=== PATIENT | female | born 1975 | race American Indian/Alaskan Native ===

== ENCOUNTER 2016-08-28 10:29 | Emergency (ER) | payer OTHER ==
[2016-08-28 10:47] VITALS: TEMP 98
--- NOTE | 2016-08-28 11:35 | C.PDOC ---
History Of Present Illness 41 y/o female presents to ED who reports positive home test at home several days ago. Pt reports scant vaginal bleeding after sexual intercourse on 08/26 (2 days ago). Denies abdominal pain or cramping, nausea, vomiting, urinary symptoms, or other complaints. Pt notes she had IUP removed last month, LMP first week of June (2 months ago). Time Seen by Provider: 08/28/16 11:11 Chief Complaint (Nursing): Abdominal Pain History Per: Patient History/Exam Limitations: no limitations Current Symptoms Are (Timing): Still Present Pain Scale Rating Of: 0 Radiation Of Pain To:: None Associated Symptoms: denies: Fever, Chills, Nausea, Vomiting, Diarrhea, Urinary Symptoms Recent travel outside of the [place]: No Abnormal Vaginal Bleeding: Yes Past Medical History Reviewed: Historical Data, Nursing Documentation, Vital Signs Vital Signs: Last Vital Signs Temp 98 F 08/28/16 10:43 Pulse 73 08/28/16 14:38 Resp 18 08/28/16 14:38 BP 102/68 08/28/16 14:38 Pulse Ox 99 08/28/16 16:09 - Medical History PMH: No Chronic Diseases Family History: States: Unknown Family Hx - Social History Hx Alcohol Use: Yes Hx Substance Use: No - Immunization History Hx Tetanus Toxoid Vaccination: No Hx Influenza Vaccination: No Hx Pneumococcal Vaccination: No Review Of Systems Except As Marked, All Systems Reviewed And Found Negative. Constitutional: Negative for: Fever, Chills Cardiovascular: Negative for: Chest Pain Respiratory: Negative for: Cough, Shortness of Breath Gastrointestinal: Negative for: Nausea, Vomiting, Abdominal Pain Genitourinary: Positive for: Vaginal Bleeding. Negative for: Dysuria, Frequency , Hematuria, Vaginal Discharge, Pelvic Pain Skin: Negative for: Rash Neurological: Negative for: Headache, Dizziness Physical Exam - Physical Exam Appears: Non-toxic, No Acute Distress Skin: Normal Color, Warm, Dry Head: Atraumatic, Normacephalic Oral Mucosa: Moist Chest: Symmetrical Cardiovascular: Rhythm Regular Respiratory: Normal Breath Sounds, No Rales, No Rhonchi, No Wheezing Gastrointestinal/Abdominal: Soft, No Tenderness, No Guarding, No Rebound Back: Normal Inspection Extremity: Normal ROM, Capillary Refill (< 2 sec. ) Neurological/Psych: Oriented x3, Normal Speech, Normal Cognition ED Course And Treatment - Laboratory Results Result Diagrams: 08/28/16 11:53 08/28/16 11:53 O2 Sat by Pulse Oximetry: 99 (RA) Pulse Ox Interpretation: Normal - CT Scan/US 1ST TRIMESTER ULTRASOUND Other Rad Studies (CT/US): Read By Radiologist, Radiology Report Reviewed CT/US Interpretation: Findings: The uterus measures approximately 11.1 x 5.0 x 7.0 cm. Anteverted. Probable midline uterine fibroid measuring approximately 1.6 x 1.5 x 2.1 cm. Cervix length measures approximately 4.5 cm. Intrauterine gestational sac appears irregular in contour and measures 1.3 cm and is compatible with a gestational age of 5 weeks 4 days. 2 mm yolk sac. No evidence of pole. The right ovary measures 3.3 x 2.9 x 3.0 cm and contains 2.5 cm complex cyst, likely corpus luteal cyst. The left ovary measures 2.0 x 1.4 x 2.7 cm. Blood flow was demonstrated to both ovaries. Impression: Intrauterine gestational sac appears irregular in contour and measures 1.3 cm and is compatible with a gestational age of 5 weeks 4 days. 2 mm yolk sac. No evidence of pole. Recommend clinical correlation and close interval follow-up including quantitative beta HCG and ultrasound as indicated. 2.5 cm probable right corpus luteal cyst. Probable 2.1 cm midline uterine fibroid. Medical Decision Making Medical Decision Making: Plan: * Labs, ultrasound, reassess. Progress: On re-exam, the patient reports improvement of symptoms. Ambulatory in the ED with steady gait. Lungs are CTA, heart is RRR, abdomen is soft, non-tender and tolerating PO well. Follow up with the medical doctor within 1-2 days. Return if worsened. Disposition - Disposition Referrals: [facility] [Outside] Disposition: HOME/ ROUTINE Disposition Time: 14:00 Condition: GOOD Additional Instructions: return to the ED in 2 days for repeat beta and ultrasound. 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 - Scribe Statement The provider has reviewed the documentation as recorded by the Scribe All medical record entries made by the Scribe were at my direction and personally dictated by me. I have reviewed the chart and agree that the record accurately reflects my personal performance of the history, physical exam, medical decision making, and the department course for this patient. I have also personally directed, reviewed, and agree with the discharge instructions and disposition.
[2016-08-28 11:58] LABS: BASO # 0.1 K/uL (0.0-0.2); BASO % 0.6 % (0.0-2.0); EOS # 0.1 K/uL (0.0-0.7); EOS % 1.5 % (0.0-4.0); HEMOGLOBIN 12.9 g/dL (11.0-16.0); LYMPH # 2.4 K/uL (1.0-4.3); LYMPH % 24.1 % (20.0-40.0); MEAN CELL VOLUME 89.6 fL (81.0-99.0); MEAN CORPUSCULAR HEMOGLOBIN 29.2 pg (27.0-31.0); MEAN CORPUSCULAR HGB CONC 32.6 g/dL (33.0-37.0); MEAN PLATELET VOLUME 9.2 fL (7.2-11.7); MONO # 0.7 K/uL (0.0-0.8); MONO % 6.8 % (0.0-10.0); NEUT # 6.6 K/uL (1.8-7.0); RBC 4.43 Mil/uL (3.80-5.20); RED CELL DISTRIBUTION WIDTH 13.9 % (11.5-14.5); WHITE BLOOD COUNT 9.8 K/uL (4.8-10.8)
[2016-08-28 12:02] LABS: URINE BILIRUBIN NEGATIVE (NEGATIVE); URINE BLOOD 2+ (NEGATIVE); URINE CLARITY Clear (Clear); URINE COLOR Yellow (YELLOW); URINE GLUCOSE (UA) NORMAL (Normal); URINE LEUKOCYTE ESTERASE NEG Leu/uL (Negative); URINE NITRATE NEGATIVE (NEGATIVE); URINE PROTEIN NEGATIVE (NEGATIVE); URINE UROBILINOGEN NORMAL mg/dL (0.2-1.0)
[2016-08-28 12:06] LABS: SQUAMOUS EPITHIAL 8 /hpf (0-5); URINE BACTERIA RARE (<OCC)
[2016-08-28 12:08] LABS: ALBUMIN 3.8 g/dL (3.5-5.0)
[2016-08-28 12:10] LABS: GFR AFRICAN-AMERICAN > 60; GFR NON-AFRICAN AMERICAN > 60
[2016-08-28 12:11] LABS: ALB/GLOB RATIO 1.3 (1.0-2.1); ALT/SGPT 22 U/L (9-52); AST/SGOT 18 U/L (14-36); BLOOD UREA NITROGEN 5 mg/dL (7-17); CALCIUM 8.8 mg/dl (8.6-10.4)
--- NOTE | 2016-08-28 14:16 | US ---
Indication: , vaginal bleeding Comparison: None available Technique: Real-time transabdominal pelvic ultrasound was performed. In addition a transvaginal pelvic ultrasound was necessary to better depict pelvic anatomy. Findings: The uterus measures approximately 11.1 x 5.0 x 7.0 cm. Anteverted. Probable midline uterine fibroid measuring approximately 1.6 x 1.5 x 2.1 cm. Cervix length measures approximately 4.5 cm. Intrauterine gestational sac appears irregular in contour and measures 1.3 cm and is compatible with a gestational age of 5 weeks 4 days. 2 mm yolk sac. No evidence of pole. The right ovary measures 3.3 x 2.9 x 3.0 cm and contains 2.5 cm complex cyst, likely corpus luteal cyst. The left ovary measures 2.0 x 1.4 x 2.7 cm. Blood flow was demonstrated to both ovaries. Impression: Intrauterine gestational sac appears irregular in contour and measures 1.3 cm and is compatible with a gestational age of 5 weeks 4 days. 2 mm yolk sac. No evidence of pole. Recommend clinical correlation and close interval follow-up including quantitative beta HCG and ultrasound as indicated. 2.5 cm probable right corpus luteal cyst. Probable 2.1 cm midline uterine fibroid.
[2016-08-28 14:39] VITALS: BP 102/68; PULSE 73; RESP 18
[2016-08-28 16:10] VITALS: O2SAT 99
== END 2016-08-28 14:47 | disposition home or self-care (01) ==
LOC: C.ER 10:29
DX: O20.0 Threatened abortion (principal); Z3A.01 Less than 8 weeks gestation of pregnancy

== ENCOUNTER 2016-08-30 08:45 | Emergency (ER) | payer OTHER ==
[2016-08-30 09:41] VITALS: RESP 16; TEMP 97.9
--- NOTE | 2016-08-30 12:42 | C.PDOC ---
History Of Present Illness Pt is here for repeat beta hcg level. She has been having vaginal spotting and was seen here 2 days ago. Time Seen by Provider: 08/30/16 09:07 Chief Complaint (Nursing): Female Genitourinary History Per: Patient Onset/Duration Of Symptoms: Days (2) Current Symptoms Are (Timing): Still Present Severity: Mild Quality Of Discomfort: Unable To Describe Alleviating Factors: None Additional History Per: Prior Records Abnormal Vaginal Bleeding: Yes Past Medical History Reviewed: Historical Data, Nursing Documentation, Vital Signs Vital Signs: Last Vital Signs Temp 97.9 F 08/30/16 09:40 Pulse 69 08/30/16 09:40 Resp 16 08/30/16 09:40 BP 101/61 08/30/16 09:40 Pulse Ox 99 08/30/16 12:44 - Medical History PMH: No Chronic Diseases Family History: States: Unknown Family Hx - Social History Hx Alcohol Use: No (no longer) Hx Substance Use: No - Immunization History Hx Tetanus Toxoid Vaccination: No Hx Influenza Vaccination: No Hx Pneumococcal Vaccination: No Review Of Systems Except As Marked, All Systems Reviewed And Found Negative. Constitutional: Negative for: Fever, Weakness Cardiovascular: Negative for: Chest Pain, Light Headedness Respiratory: Negative for: Shortness of Breath Gastrointestinal: Negative for: Vomiting, Abdominal Pain Genitourinary: Negative for: Dysuria Musculoskeletal: Negative for: Neck Pain, Back Pain Skin: Negative for: Rash Neurological: Negative for: Weakness, Numbness, Seizures, Altered Mental Status Physical Exam - Physical Exam Appears: Non-toxic, No Acute Distress Skin: Normal Color, Warm, Dry, No Rash Head: Atraumatic, Normacephalic Eye(s): bilateral: Normal Inspection, PERRL, EOMI Neck: Normal ROM, Supple Cardiovascular: Rhythm Regular Respiratory: Normal Breath Sounds, No Accessory Muscle Use Gastrointestinal/Abdominal: Soft, No Tenderness Back: No CVA Tenderness Extremity: Normal ROM Neurological/Psych: Oriented x3, Normal Motor, Normal Sensation ED Course And Treatment - Laboratory Results Interpretation Of Abnormal: Beta hcg went up from 21k to 31k. O2 Sat by Pulse Oximetry: 99 Pulse Ox Interpretation: Normal - Physician Consult Information Physician Contacted: Oanh Alejandro ([employer] Notcher) Outcome Of Conversation: She recommended repeat US and f/up as outpt with her Senior Nurse Manager if US is stable. Disposition Counseled Patient/Family Regarding: Studies Performed, Diagnosis, Need For Followup - Disposition Disposition: HOME/ ROUTINE Disposition Time: 13:13 Condition: IMPROVED Additional Instructions: Pelvic rest as instructed. Follow up with your Part[employer] Notcher doctor within 1 week for further evaluation and treatment. Return to the ER if you develop abdominal pain , fever, heavy bleeding, dizziness, worsening of symptoms or if you have any other concerns. Instructions: Threatened Miscarriage (ED) - Clinical Impression Clinical Impression: Threatened in first trimester
--- NOTE | 2016-08-30 12:54 | US ---
PROCEDURE: OB Pelvic Ultrasound HISTORY: Spotting. abnormaly rising beta hcg. COMPARISON: 08/28/2016 FINDINGS: UTERUS: Intrauterine gestational sac identified. Mean sac diameter 1.7 cm corresponds to 6 weeks 0 days. No pole identified. No demonstrable cardiac activity. 3 mm yolk sac identified. Subchorionic hemorrhage measures 3.2 x 0.7 x 2.4 cm. There is an echogenic vaguely rounded soft tissue density protruding into the gestational sac which may represent fresh hemorrhage. Uterus measures 9.6 x 5.3 x 6.7 cm. There is a midline intramural fibroid, 1.6 x 1.5 x 1.4 cm. CERVIX: Long and closed. No cervical abnormality seen. RIGHT OVARY: Measures 3.1 x 2.8 x 3.3 cm. No mass. Normal flow. Corpus luteum, 2.5 x 2.0 x 2.2 cm. LEFT OVARY: Measures 2.9 x 2.1 x 2.2 cm. No mass. Normal flow. FREE FLUID: Minimal OTHER FINDINGS: None. IMPRESSION: Intrauterine gestational sac with sac diameter corresponding to 6 weeks 0 days. No demonstrable pole. Subchorionic hemorrhage with echogenic component possibly representing fresh hemorrhage. Alternatively, this could represent abnormal pole. No cardiac activity demonstrated. Incidental 1.6 cm uterine fibroid. Minimal fluid in cul-de-sac. Right ovarian corpus luteum.
[2016-08-30 13:20] VITALS: BP 100/68; PULSE 76; O2SAT 98
== END 2016-08-30 13:19 | disposition home or self-care (01) ==
LOC: C.ER 08:45
DX: O20.0 Threatened abortion (principal); Z3A.01 Less than 8 weeks gestation of pregnancy

== ENCOUNTER 2016-09-03 17:27 | Emergency (ER) | payer OTHER ==
[2016-09-03] MEDS ORDERED: Sodium Chloride 0.9% 1,000 ML IV ONE (18:40)
[2016-09-03 19:03] LABS: BASO # 0.1 K/uL (0.0-0.2); BASO % 0.6 % (0.0-2.0); EOS # 0.1 K/uL (0.0-0.7); EOS % 1.2 % (0.0-4.0); HEMOGLOBIN 12.4 g/dL (11.0-16.0); LYMPH # 2.9 K/uL (1.0-4.3); LYMPH % 25.6 % (20.0-40.0); MEAN CELL VOLUME 89.3 fL (81.0-99.0); MEAN CORPUSCULAR HGB CONC 32.5 g/dL (33.0-37.0); MEAN PLATELET VOLUME 9.1 fL (7.2-11.7); MONO # 0.7 K/uL (0.0-0.8); MONO % 6.2 % (0.0-10.0); NEUT # 7.6 K/uL (1.8-7.0); NEUT % 66.4 % (50.0-75.0); NRBC % 0.1 % (0.0-2.0); RBC 4.28 Mil/uL (3.80-5.20); RED CELL DISTRIBUTION WIDTH 13.9 % (11.5-14.5); WHITE BLOOD COUNT 11.5 K/uL (4.8-10.8)
[2016-09-03 19:12] LABS: ALBUMIN 3.8 g/dL (3.5-5.0); PROTHROMBIN TIME 10.7 SECONDS (9.7-12.2)
[2016-09-03 19:13] LABS: SQUAMOUS EPITHIAL 2 /hpf (0-5); URINE AMORPHOUS SEDIMENT FEW /ul (<OCC); URINE BACTERIA RARE (<OCC); URINE BILIRUBIN NEGATIVE (NEGATIVE); URINE CLARITY Hazy (Clear); URINE COLOR Yellow (YELLOW); URINE GLUCOSE (UA) NORMAL (Normal); URINE LEUKOCYTE ESTERASE NEG Leu/uL (Negative); URINE NITRATE NEGATIVE (NEGATIVE); URINE PROTEIN NEGATIVE (NEGATIVE); URINE UROBILINOGEN NORMAL mg/dL (0.2-1.0)
[2016-09-03 19:15] LABS: ALB/GLOB RATIO 1.3 (1.0-2.1); ALT/SGPT 35 U/L (9-52); AST/SGOT 21 U/L (14-36); BLOOD UREA NITROGEN 6 mg/dL (7-17); GFR AFRICAN-AMERICAN > 60; GFR NON-AFRICAN AMERICAN > 60
[2016-09-03 19:20] LABS: URINE BLOOD 2+ (NEGATIVE)
--- NOTE | 2016-09-03 21:38 | C.PDOC ---
History Of Present Illness Pt states vaginal bleeding increased today with suprapubic cramping. Time Seen by Provider: 09/03/16 18:30 Chief Complaint (Nursing): Female Genitourinary History Per: Patient Onset/Duration Of Symptoms: Days Current Symptoms Are (Timing): Worse Severity: Moderate Quality Of Discomfort: Cramping Alleviating Factors: None Additional History Per: Prior Records Abnormal Vaginal Bleeding: Yes Past Medical History Reviewed: Historical Data, Nursing Documentation, Vital Signs Vital Signs: Last Vital Signs Temp 98 F 09/03/16 17:32 Pulse 91 H 09/03/16 17:32 Resp 18 09/03/16 17:32 BP 105/71 09/03/16 17:32 Pulse Ox 100 09/03/16 17:32 - Medical History PMH: No Chronic Diseases Family History: States: Unknown Family Hx - Social History Hx Alcohol Use: Yes Hx Substance Use: No - Immunization History Hx Tetanus Toxoid Vaccination: No Hx Influenza Vaccination: No Hx Pneumococcal Vaccination: No Review Of Systems Except As Marked, All Systems Reviewed And Found Negative. Constitutional: Negative for: Fever, Weakness Cardiovascular: Negative for: Chest Pain, Light Headedness Respiratory: Negative for: Shortness of Breath Gastrointestinal: Negative for: Vomiting Genitourinary: Positive for: Vaginal Bleeding, Pelvic Pain Musculoskeletal: Negative for: Neck Pain, Back Pain Skin: Negative for: Rash Neurological: Negative for: Weakness, Numbness Physical Exam - Physical Exam Appears: Non-toxic, No Acute Distress Skin: Normal Color, Warm, Dry, No Rash Head: Atraumatic, Normacephalic Eye(s): bilateral: Normal Inspection, PERRL, EOMI Neck: Normal ROM, Supple Cardiovascular: Rhythm Regular Respiratory: Normal Breath Sounds, No Accessory Muscle Use Gastrointestinal/Abdominal: Soft, Tenderness (mild suprapubic), No Guarding, No Rebound Back: No CVA Tenderness Extremity: Normal ROM Neurological/Psych: Oriented x3, Normal Motor, Normal Sensation ED Course And Treatment - Laboratory Results Result Diagrams: 09/03/16 18:56 09/03/16 18:56 Interpretation Of Abnormal: small increase in beta hcg level. Stable H/H. O2 Sat by Pulse Oximetry: 100 Pulse Ox Interpretation: Normal - CT Scan/US Pelvic US Other Rad Studies (CT/US): Read By Radiologist, Radiology Report Reviewed CT/US Interpretation: Gestational sac 6week and 6day size. Irregular shape with subchorionic hemorrhage. - Physician Consult Information Physician Contacted: Melecio Engel (Wig Sales Consultant) Outcome Of Conversation: She states that pt can be discharged home with close Airframe Technical Officer f/up with her brewing technician, Dr. Lion or Dr. Engel herself if pt is not able to f/ up with them. Disposition Counseled Patient/Family Regarding: Studies Performed, Diagnosis, Need For Followup - Disposition Referrals: Chavez Lion [Staff Provider] - Melecio Engel MD [Staff Provider] - Disposition: HOME/ ROUTINE Disposition Time: 21:40 Condition: STABLE Additional Instructions: Follow up with your [employer] or with Dr. Lion in 1-2 days. Follow up with Dr. Engel (Phone #: [phone]) if you are unable to follow up with another [employer] tomorrow. Return to the ER if you develop dizziness, fever , worsening of symptoms or if you have any other concerns. Forms: General Discharge Instructions - Clinical Impression Clinical Impression: Abnormal vaginal bleeding, , abnormal
[2016-09-03 21:54] VITALS: BP 108/72; PULSE 75; RESP 16; TEMP 98; O2SAT 98
--- NOTE | 2016-09-04 10:34 | US ---
HISTORY: Pain/bleeding COMPARISON: None available. TECHNIQUE: Transvaginal pelvic ultrasound was performed. FINDINGS: UTERUS: Enlarged and measures 11.5 x 5.5 x 7.1 cm. The uterus is anteverted. There is single intrauterine gestational sac measuring 2.27 cm corresponding to 6 weeks and 6 days of gestational age. There is question of a small yolk sac. There is no definite evidence of pole. There is a large subchorionic hemorrhage measuring 3.6 x 3.1 x 2.6 cm. CERVIX: No cervical abnormality identified. RIGHT OVARY: Measures 3.7 x 3.4 x 3.4 cm. No solid mass. Normal flow. There is a 1.9 x 1.4 x 1.4 cm cyst. LEFT OVARY: Measures 3.1 x 2.3 x 2.4 cm. No solid mass. Normal flow. FREE FLUID: There is a small amount of free fluid in the cul de sac. OTHER FINDINGS: None. IMPRESSION: 1. Single intrauterine gestational sac with mean gestational age of 6 weeks and 6 days. There is a probable yolk sac however pole is not visualized on the current examination. Close interval follow-up is advised to confirm viability. 2. Large 3.6 x 3.1 x 2.6 cm subchorionic hemorrhage. A preliminary report was provided by [employer] [facility].
== END 2016-09-03 21:54 | disposition home or self-care (01) ==
LOC: C.ER 17:27
DX: O20.9 Hemorrhage in early pregnancy, unspecified (principal); Z3A.01 Less than 8 weeks gestation of pregnancy
CPT/HCPCS: 76817; 80053; 81001; 84702; 85025; 85610; 85730; 86850; 86900; 96360; 99285; J7040

== ENCOUNTER 2016-09-06 12:25 | Day surgery (SDC) | payer OTHER ==
[2016-09-06 07:12] VITALS: BMI 26.6
[2016-09-06 13:14] VITALS: O2SAT 100
[2016-09-06] MEDS ORDERED: HYDROmorphone 0.5 mg/0.5 ml ISec IVP PRN (14:35)
[2016-09-06] MEDS ORDERED: Lactated Ringer's 1,000 ML IV ONE (14:43)
[2016-09-06] MEDS ORDERED: Midazolam 2 MG/2 ML VIAL ONE (14:45)
[2016-09-06] MEDS ORDERED: Propofol 10 mg/ml Inj (20 ML) ONE (14:45)
[2016-09-06] MEDS ORDERED: Morphine 4 MG/ML VIAL ONE (15:01)
[2016-09-06] MEDS ORDERED: Silver Nitrate Topical - Stick ONE (15:16)
--- NOTE | 2016-09-06 15:48 | PCM.SURG1 ---
Surgeon's Initial Post Op Note - Surgeon's Notes Surgeon: DR Lion Assistant Women'S Rowing Coach: Tracey Miller Type of Anesthesia: General Endo Anesthesia Administered By: KEATON Webb supervised by Dr Ferrer Pre-Operative Diagnosis: Missed Operative Findings: 12wk sized retroverted uterus sounded to a deapth of 10cm. Cervix was mildly open with some blood clots. Copious amounts of POC suctioned and curreted and sent for pathology. IVF- 500mls. EBL- 150mls. Urine Output- 50mls Post-Operative Diagnosis: Same as preop Diagnosis Operation Performed: Suction D and C Specimen/Specimens Removed: Products of conception Estimated Blood Loss: EBL {In ML}: 150 Blood Products Given: N/A Post-Op Condition: Good Date of Surgery/Procedure: 09/06/16 Time of Surgery/Procedure: 15:49
[2016-09-06 15:49] VITALS: RESP 18
[2016-09-06] MEDS ORDERED: HYDROmorphone 1 mg/ml ISec ONE (16:10)
[2016-09-07 11:53] VITALS: BP 110/66; PULSE 92
[2016-09-07 11:54] VITALS: TEMP 97.8
--- NOTE | 2016-09-10 14:51 | OP ---
Elsa 09/06/2016PREOPERATIVE DIAGNOSIS: A 41-year-old female with missed . POSTOPERATIVE DIAGNOSIS: A 41-year-old female with missed . PROCEDURE DONE: Suction dilatation and curettage, performed on 09/06/2016. SURGEON: Dr. Lion. CANE FLUME WATCHMAN: Tracey Miller, a family practice resident. Assistance to this procedure was needed for help in the conduct of the surgery and the perinatal breastfeeding assistant remained with the surgery throughout its entire length. TYPE OF ANESTHESIA: General endotracheal. ANESTHESIA ADMINISTERED BY: KEATNO Webb, supervised by Dr. Ferrer. FINDINGS: A 12-week sized retroverted uterus, sounded to a depth of 10 cm. The cervix was mildly open with some blood clots. Copious amounts of products of conception were suctioned and curetted and the product sent for pathology. IV FLUID INTAKE: 500 mL. ESTIMATED BLOOD LOSS: 150 mL. URINE OUTPUT: 15 mL of clear urine. COMPLICATIONS: There were no complications. DESCRIPTION OF PROCEDURE: After obtaining an informed consent, the patient was sent to the OR with IV running. The patient was sat on the OR table and placed in a supine position. After adequate general anesthesia, the patient was placed in the dorsal lithotomy position. The patient was then prepped and draped in the sterile fashion. A urinary bladder was drained with a straight cath with output of about 15 mL of clear urine. A posterior wall of the vagina was depressed with a weighted speculum and the anterior wall was elevated with an L-shaped retractor to expose the cervix. The anterior lip of the cervix was held with a single-tooth tenaculum. The uterus was then sounded to a depth of 10 cm. A cervical canal which was mildly open, was further dilated using Hegar's dilator to about 8 mm. An 8 mm curved suctioning cannula was introduced into the endometrial cavity and a suction applied from the suction machine; several passes were made and copious amounts of products of conception were suctioned from the endometrial cavity. Sharp curettage using a size 8 curette was done to ensure adequate removal. Another pass of the endometrial cavity with the suction cannular was done after the curettage. Once the procedure was completed, all instruments were taken from the vagina; hemostasis was assured, The patient was replaced in the supine position and was sent to the recovery room awake and in stable condition. All counts of instruments and gauze used were correct x3. The patient was sent to the recovery room awake and in stable condition. Chavez Lion MD CANDE
== END 2016-09-06 18:10 | disposition home or self-care (01) ==
LOC: C.OPSURG 12:25 → C.SDS 12:25
PROVIDERS: ATTEND Obstetrics & Gynecology
DX: O02.1 Missed abortion (principal)
CPT/HCPCS: 59820; 88305; J1170; J2250; J2270; J2704; J3010; J7120